=== PATIENT | female | born 2000 | race Caucasian/White ===

== ENCOUNTER 2022-11-04 00:31 | Inpatient (IN) | payer BC, MEDICAID, SELFPAY ==
[2022-11-03 23:26] VITALS: BP 156/94; PULSE 90
[2022-11-03 23:43] VITALS: BP 132/61; PULSE 90
[2022-11-03 23:58] VITALS: BP 144/65; PULSE 100
[2022-11-04] VITALS (81 sets, daily range): BP systolic 88–165; BP diastolic 50–103; PULSE 60–141; RESP 15–18; TEMP 36–37.8; O2SAT 99; BMI 47.3
[2022-11-04] MEDS: miSOPROStol 100 mcg tablet 25 MCG SUBLINGUAL (00:24)
[2022-11-04 00:34] LABS: Basophils % 0.1 %; Eosinophils # 0.1 10^3/uL (0.0-0.8); Eosinophils % 0.6 %; Hemoglobin 11.6 g/dL (11.5-15.3); Lymphocytes # 1.7 10^3/uL (0.8-4.8); Lymphocytes % 17.7 %; Mean Corpuscular HGB Conc 33.1 g/dL (30.0-36.0); Mean Corpuscular Hemoglobin 30.9 pg (28.0-34.0); Mean Corpuscular Volume 93.3 fl (81-99); Mean Platelet Volume 11.7 fL (7.4-10.4); Monocytes # 0.8 10^3/uL (0.2-0.9); Monocytes % 8.2 %; Neutrophils # 7.09 10^3/uL (1.8-7.7); Neutrophils % 72.8 %; Nucleated Red Blood Cells % 0 %; Platelet Count 227 10^3/cmm (130-400); Red Blood Count 3.75 10^6/uL (4.1-5.3); Red Cell Distribution Width 13.3 % (12.1-15.1); White Blood Count 9.7 10^3/uL (4.0-10.0)
[2022-11-04] MEDS: dextrose 5%-lactated ringers 1,000 ML 125 ML IV ×3 (04:28→13:05)
[2022-11-04] MEDS: oxytocin 30 UNIT/500 ML BAG IV (06:15)
--- NOTE | 2022-11-04 08:49 | ANES.PREANE2 ---
Pre-Anesthetic Assessment Height/Weight: Height 1.63 m Weight 125.191 kg Temp Pulse Resp BP Pulse Ox O2 Del Method 97.9 F 105 H 15 111/52 99 11/04/22 00:00 11/04/22 08:40 11/04/22 00:00 11/04/22 08:40 11/04/22 08:28 11/04/22 02:47 epidural Familial anesthetic complications: None Was Beta Abhishek taken within 24 hours: N/A Was Clonidine taken within 24 hours: N/A Social Tobacco and No alcohol Exam alert, oriented x 3, clear to auscultation bilaterally and regular rate & rhythm Airway Mallampati: Class III Dentition: full Metabolic Morbid Obesity Anesthetic Plan ASA status: 3 Anesthesia: Regional (specify below) Risk of > 500 ml blood loss (7ml/kg in children): Yes, adequate IV access and fluids planned Medications/Allergies Current Medications Generic Name Dose Route Start Last Admin Trade Name Freq PRN Reason Stop Dose Admin Dextrose/Lactated Ringer's 1,000 mls @ 125 mls/hr 11/03/22 23:59 11/04/22 07:50 Dextrose 5%-Lactated Ringers IV Infused .Q8H PRN Infusion per label comments Dextrose/Lactated Ringer's 1,000 mls @ 125 mls/hr 11/03/22 23:45 11/04/22 07:49 Dextrose 5%-Lactated Ringers IV 125 mls/hr .Q8H CARLY Administration Oxytocin 30 unit in 500 mls @ 1 mls/hr 11/04/22 05:45 11/04/22 08:09 Pitocin IV 4 milliunit/min .Q24H CARLY 4 mls/hr Titration Protocol 1 MILLIUNIT/MIN Ropivacaine 200 mg in 100 mls @ 13 mls/hr 11/04/22 08:15 11/04/22 08:32 Naropin Premix EPIDURAL 13 mls/hr .Q7H42M CARLY Administration PFSH Anesthesia Female Reproductive History : 1 Data Anesthesia 11/04/22 00:00 Short CBC 11/04/22 Range/Units 00:00 WBC 9.7 (4.0-10.0) 10^3/uL Hgb 11.6 (11.5-15.3) g/dL Hct 35.0 L (37.0-47.0) % MCV 93.3 (81-99) fl Plt Count 227 (130-400) 10^3/cmm Neut % (Auto) 72.8 % Neut # (Auto) 7.09 (1.8-7.7) 10^3/uL Cardiac Studies: No Data to Display
--- NOTE | 2022-11-04 08:50 | ANES.PROC ---
Anesthesia Procedures Procedure/Date: 11/04/22 Epidural: Time Out Performed: Yes Consents Signed: Procedure Consent Consent: requested by attending/covering physician, from patient, from other, risks and benefits reviewed and patient agrees to proceed Lumbar Level: L3-L4 Epidural position: sitting Epidural procedure: sterile prep of area, 1% lidocaine to numb the area, 18 g needle, negative for paresthesia passed, neg for paresthesia, test dose given, 1.5% xylocaine 1:200k epi (5 cc), 0.2% Ropivacaine bolus ml (5), placed PCEA, no systemic response, sterile dressing applied, L.U.D. no apparent complications and 0.2% Ropiavacaine @ mls/hr (14) Additional Comments: KOBY at 6.5 cm
[2022-11-04] MEDS: ondansetron 2 mg/ML SDV 2 mL 4 MG IVP ×2 (09:26→17:47)
--- NOTE | 2022-11-04 16:42 | PC.NURSE ---
Patient complaining of pain on her right side. Patient repositioned and epidural bolus administered.
--- NOTE | 2022-11-04 18:49 | PC.NURSE ---
Patient continues to complain of pain of a 7 on a scale of 0-10 after position change and pushing her epidural bolus. Anesthesia called and stated they would come bolus her.
--- NOTE | 2022-11-04 19:12 | P.PN_ITS ---
Subjective Subjective: Patient received epidural 11 hours prior, patient has been resting comfortably. RN called [employer] reporting patients onset of discomfort within the last hour despite 3 demand doses. [employer] came and assessed Epidural function bilateral block noted T10 level. Patient describes sharp pain in vaginal area. 100 mcg Fentanyl and 5 ml of 3% Chloroprocaine given via epidural. Will continue to monitor. Vitals/I&O/Wt Last Vital Signs Temp 98.3 F 11/04/22 14:48 Pulse 93 11/04/22 18:58 Resp 18 11/04/22 14:48 BP 143/61 11/04/22 18:58 Pulse Ox 99 11/04/22 08:28 O2 Del Method 11/04/22 02:47 11/04/22 11/04/22 11/04/22 06:59 14:59 22:59 Intake Total 1719.550 / 1719.550 138.25 / 1857.800 Output Total 1000 / 1000 400 / 1400 Balance 719.550 / 719.550 -261.75 / 457.800 Weight last 48 hrs Weight 125.191 kg Physical Exam Urinary Catheter Management: Su: Cath Placed During This Visit: yes Reason for Continuing Indwelling Catheter: Required Immobilization for Trauma or Surgery or Anesthesia Urinary Catheter Date of Insertion: 11/04/22 Urinary Catheter Time of Insertion: 09:02 Data 11/04/22 00:00 Attestations Medical Necessity Statement*: none Coding Level of Care Code Acute Code for Chg Fwd
[2022-11-04] MEDS: lactated ringers 1,000 ML 999 ML IV ×2 (20:00→21:35)
[2022-11-04] MEDS: famotidine 20 mg/2 mL INJ IVP (22:17)
[2022-11-04] MEDS: citric acid-sodium citrate 30 mL UDC PO (22:17)
[2022-11-04] MEDS: ceFAZolin 2,000 MG in sodium chloride 0.9% (plus) 50 ML 100 MG IV (22:17)
[2022-11-04] MEDS: metoclopramide 5 mg/mL SDV 2 mL 10 MG IVP (22:17)
--- NOTE | 2022-11-04 22:20 | P.HP_ITS ---
Providers/Chief Complaint Admitting Physician: Glenn Kee MD Chief Complaint: possible ROM History of Present Illness Nohemy Eduardo is a 22 year old 41-week 2 para 0-0-1-0 female who presented to the hospital with spontaneous rupture of membranes. The rupture of membranes occurred within a couple hours of arriving at the hospital. Her had been relatively unremarkable otherwise. Her labs had been unremarkable. Her blood type was a positive. Her antibody screen was negative. Her infectious disease profile was within normal limits. She had a borderline glucose screen done but did not get a 3-hour test done. She is rubella immune. She received her Tdap. She was GBS negative. Review of Systems General: Reports: 10 or more systems reviewed and unremarkable except in HPI and below Const: Reports: fever(s) and fatigue Eyes: Denies: change in vision Card: Denies: chest pain Musc: Reports: back pain Alfonso/Lymph: Denies: easy bruising Medications/Allergies Home Medications Medication Instructions Recorded Confirmed Last Taken Type [id number]-cyb-Gh-FA 1 mg tab PO 11/04/22 11/03/22 08:00 History tablet docusate sodium 100 mg capsule 100 mg PO BID #20 caps 11/06/22 Unknown Rx hydrocodone 5 mg-acetaminophen 325 1 tab PO Q4H PRN Moderate To 11/06/22 Unknown Rx mg tablet Severe Pain #28 tabs ibuprofen 800 mg tablet 800 mg PO TID #45 tabs 11/06/22 Unknown Rx Allergies Allergy/AdvReac Type Severity Reaction Status Date / Time No Known Allergies Allergy Verified 11/04/22 14:52 PFSH Acute Female Reproductive History: : 1 Vitals/I&O/Wt Last Vital Signs Temp 100.0 F H 11/04/22 19:40 Pulse 94 11/04/22 22:12 Resp 18 11/04/22 14:48 BP 143/81 11/04/22 22:12 Pulse Ox 99 11/04/22 08:28 O2 Del Method 11/04/22 02:47 11/04/22 11/04/22 11/04/22 06:59 14:59 22:59 Intake Total 1719.550 / 4414.347 4281.300 / 2850.850 Output Total 1000 / 1000 400 / 1400 Balance 719.550 / 719.550 731.300 / 1450.850 Weight last 48 hrs Weight 276 lb Physical Exam Const: COMMON NORMALS: patient oriented x3 and alert HENMT: COMMON NORMALS: moist oral mucous membranes HEAD & SCALP: normal to inspection Chest: COMMONS NORMALS: normal inspection of the chest Resp: COMMON NORMALS: clear to auscultation bilaterally AUSCULTATION: clear to auscultation bilaterally Cardio: COMMON NORMALS: regular rate and regular rhythm RATE: regular rate RHYTHM: regular rhythm GI: INSPECTION: Yes normal to inspection and Yes other (Gravid) Extremity: COMMON NORMALS: normal to inspection GENERAL: Yes edema (Trace) Neuro: COMMON NORMALS: patient oriented x3, moves all extremities and no sensory deficits noted SENSORIUM/ORIENTATION: Yes alert Psych: COMMON NORMALS: mental status grossly normal Skin: COMMON NORMALS: no rashes or lesions noted GENERAL SKIN EXAM: no rashes or lesions noted Urinary Catheter Management: Su: Cath Placed During This Visit: yes Reason for Continuing Indwelling Catheter: Required Immobilization for Trauma or Surgery or Anesthesia Urinary Catheter Date of Insertion: 11/04/22 Urinary Catheter Time of Insertion: 09:02 Data 11/04/22 00:00 A&P Assessment and plan (1) 41 weeks gestation of : (2) Spontaneous rupture of membranes: (3) Failure to progress in labor: Patient has 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 It has now been 24 hours since her membranes ruptured, her temperature is now 100.0, I am elected to proceed with a section. I discussed the risk with the patient and her . We discussed the risks of bleeding and infection. They have no further questions and wished to proceed. Because of mother's pulse is less than 100, her temperature is less than 100.4, and there have been no other signs of chorioamnionitis at this point, we will not give her more than her routine presurgical antibiotics. Attestations Medical Necessity Statement*: I anticipate routine and post C- section care Coding Level of Care Code Acute Code for Chg Fwd Exam Comprehensive Diagnoses 41 weeks gestation of O48.0; Z3A.41 Spontaneous rupture of membranes Failure to progress in labor O62.2
--- NOTE | 2022-11-04 23:31 | PM.OP ---
Operative Report Date of procedure: November 04, 2022 Pre-op diagnosis: 1. 22-year-old 2 para 0-0-1-0 at 41 weeks estimated gestational age 2. Failure to progress Post-op diagnosis: Status post lower transverse section Procedure done: Lower transverse section Specimens removed/disposition: 1. Male infant with a weight of 9 pounds 6 ounces and Apgars of 8 and 8 2. Placenta with a three-vessel cord delivered intact Surgeon: Glenn Kee Estimated blood loss (mL): 1,000 Complications: None Procedure: The patient was brought back to the operating room where she was prepped and draped in usual sterile fashion. Anesthesia was found to be adequate. A lower transverse skin incision was then made with a #10 blade. I then dissected down to the underlying subcutaneous tissue until arriving at the prerectal fascia. The fascia was then nicked with the scalpel bilaterally. The fascial incisions were then carried laterally with Lofton scissors. Attention was then turned to the superior aspect of the incision which was grasped with kochers and tented up away from the underlying rectus abdominis muscles. The muscles were then dissected away from the fascia manually, and later with Lofton scissors. Attention was then turned to the inferior aspect of the incision, and the fascia was dissected away from the underlying muscle in similar fashion. The rectus abdominis muscles were then spread manually. The peritoneum was entered manually. Excellent visualization of the uterus was noted. A lower transverse uterine incision was then made with a #10 blade. Upon arriving at the intrauterine cavity, the uterine incision was then extended manually. The infant was noted to be in vertex position. The baby was delivered without difficulty. After delivery of the head, the mouth and nose were suctioned at the site of the incision. Moderate meconium was noted.. There was a nuchal cord x1. The remainder of the body was then delivered and placed on the abdomen. The cord was cut and clamped. The baby was then handed to the waiting nurse. The placenta was removed intact. The uterus was externalized. The intrauterine cavity was cleansed of any remaining debris. The uterine incision was reapproximated in 2 layers. The first layer was performed with 0 Vicryl in a running locked stitch. The second layer was an imbricating stitch also using 0 Vicryl. The uterus was replaced into the abdomen. The peritoneum was then irrigated with warm saline. I reexamined the uterine incision and found it to be hemostatic. The rectus abdominis muscles were then reapproximated using 0 Vicryl in a running stitch. The fascia was then reapproximated using 0 Vicryl in running stitch. The subcutaneous tissue was then reapproximated using 0 Vicryl in a running stitch. The skin was then reapproximated using 4-0 Vicryl in a running subcuticular stitch. A sterile dressing was placed. All counts were correct x2. Both the mother and baby were in stable condition.
[2022-11-05] VITALS (57 sets, daily range): BP systolic 103–142; BP diastolic 56–85; PULSE 78–106; RESP 16–18; TEMP 36.1–36.9; O2SAT 93–98
[2022-11-05] MEDS: dextrose 5%-lactated ringers 1,000 ML 125 ML IV ×2 (04:01→12:38)
[2022-11-05] MEDS: oxytocin 30 UNIT/500 ML BAG 600 UNIT IV (05:28)
[2022-11-05] MEDS: ketorolac 30 mg/mL INJ IVP ×2 (05:51→11:27)
[2022-11-05] MEDS: morphine 4 mg/mL SDV 1 mL IVP (06:29)
[2022-11-05] MEDS: docusate sodium 100 mg Capsule PO ×2 (08:39→17:52)
[2022-11-05] MEDS: ferrous sulfate EC 325 mg Tablet PO ×2 (08:39→17:52)
[2022-11-05] MEDS: prenatal vitamin Capsule 1 CAP PO (08:39)
--- NOTE | 2022-11-05 09:30 | ANE.PACU2 ---
Inpatient post-anesthesia follow up: Airway intact: Yes Vital signs: Temperature 97.9 F Pulse Rate 93 Respiratory Rate 16 Blood Pressure 118/63 Pulse Oximetry 95 Oxygen Delivery Me thod Room Air Oxygen Flow Rate Fraction of Inspir ed Oxygen Hydration adequate: Yes Nausea and vomiting: No Pain level: 1 Mental status: Baseline
[2022-11-05] MEDS: lactated ringers 1,000 ML 500 ML IV (10:20)
[2022-11-05 12:02] LABS: Hematocrit 28.3 % (37.0-47.0); Hemoglobin 9.2 g/dL (11.5-15.3); Mean Corpuscular HGB Conc 32.5 g/dL (30.0-36.0); Mean Corpuscular Hemoglobin 31.6 pg (28.0-34.0); Mean Corpuscular Volume 97.3 fl (81-99); Mean Platelet Volume 11.4 fL (7.4-10.4); Platelet Count 172 10^3/cmm (130-400); Red Blood Count 2.91 10^6/uL (4.1-5.3); Red Cell Distribution Width 13.7 % (12.1-15.1); White Blood Count 12.1 10^3/uL (4.0-10.0)
[2022-11-05] MEDS: HYDROcodone-acetaminophen 5-325 mg Tablet PO ×2 (12:23→23:12)
[2022-11-05] MEDS: simethicone 80 mg Chew PO (21:15)
[2022-11-05] MEDS: ibuprofen 800 mg tablet PO (21:15)
[2022-11-06] MEDS: HYDROcodone-acetaminophen 5-325 mg Tablet PO ×4 (03:16→16:55)
[2022-11-06 05:09] VITALS: BP 123/82; PULSE 83; RESP 16; TEMP 36.6
--- NOTE | 2022-11-06 07:29 | PM.OBGYPN ---
DIRECTOR OF ENROLLMENT Subjective Subjective: Interval history: This note is for my evaluation and physical on November 05. Overall the patient has done appropriately. Her pain is being controlled with ibuprofen and hydrocodone. The patient is hesitant to take hydrocodone. She is also having some difficulty with breast-feeding, and the nurses are helping her consistently. Her bleeding has been minimal. She has not passed gas. Her urine output has been marginal, but has improved dramatically after having a bolus. Labor: Station: -2 Amniotic Membrane Status: Ruptured Monitor Mode: External Contraction Pattern: Regular Status: Category I Vitals/I&O/Wt Last Vital Signs Temp 97.9 F 11/06/22 05:09 Pulse 83 11/06/22 05:09 Resp 16 11/06/22 05:09 BP 123/82 11/06/22 05:09 Pulse Ox 98 11/05/22 21:18 O2 Del Method 11/05/22 21:17 11/05/22 11/06/22 11/06/22 22:59 06:59 14:59 Intake Total 795.833 / 1795.833 Balance 795.833 / 1645.833 Physical Exam Narrative: She is in no acute distress Lungs are clear auscultation bilaterally Her heart has a regular rate and rhythm Her fundus is below the umbilicus and firm Her dressing is clean, dry and intact Her extremities have trace edema Urinary Catheter Management: Su: Cath Placed During This Visit: yes Reason for Continuing Indwelling Catheter: Required Immobilization for Trauma or Surgery or Anesthesia Urinary Catheter Date of Insertion: 11/04/22 Urinary Catheter Time of Insertion: 09:02 Data 11/05/22 11:30 A&P Assessment and plan (1) Status post : We will continue to encourage the patient to ambulate. The nurses will continue to work with her home breast-feeding. She has been sending some back signals as to whether she wants to continue breast-feeding, but as long as she expresses interest we will continue to assist her. Otherwise, we will monitor her her postoperative progress. I anticipate she will be discharged home within the next 1 to 2 days. Attestations Medical Necessity Statement*: Routine and post care Coding Level of Care Code Acute Code for Chg Fwd Diagnoses Status post Z98.891
--- NOTE | 2022-11-06 07:35 | PM.OBGYPN ---
NUMERICAL CONTROL TOOL PROGRAMMER Subjective Subjective: Interval history: The patient's bleeding continues to be minimal. She continues to have some struggles with the baby latching during her breast-feeding sessions. She has been ambulating some, but we are encouraging her to ambulate more. She has not had any flatus. She is hungry this morning. Labor: Station: -2 Amniotic Membrane Status: Ruptured Monitor Mode: External Contraction Pattern: Regular Status: Category I Vitals/I&O/Wt Last Vital Signs Temp 97.9 F 11/06/22 05:09 Pulse 83 11/06/22 05:09 Resp 16 11/06/22 05:09 BP 123/82 11/06/22 05:09 Pulse Ox 98 11/05/22 21:18 O2 Del Method 11/05/22 21:17 11/05/22 11/06/22 11/06/22 22:59 06:59 14:59 Intake Total 795.833 / 1795.833 Balance 795.833 / 1645.833 Physical Exam Narrative: She is in no acute distress Lungs are clear auscultation bilaterally Her heart has a regular rate and rhythm Her fundus is below the umbilicus and firm Her vision is clean, dry and intact. There is a small amount of dried blood on the left side of her incision. Her extremities have trace edema Urinary Catheter Management: Su: Cath Placed During This Visit: yes Reason for Continuing Indwelling Catheter: Required Immobilization for Trauma or Surgery or Anesthesia Urinary Catheter Date of Insertion: 11/04/22 Urinary Catheter Time of Insertion: 09:02 Data 11/05/22 11:30 A&P Assessment and plan (1) Status post : We will continue to monitor her progress today. We will continue to encourage her to ambulate. I anticipate that she will pass some gas today. When she does, we will advance her diet. Attestations Medical Necessity Statement*: The patient could progress quickly if she passes flatus this morning, otherwise I anticipate she will be discharged home in the next 1 to 2 days. Coding Level of Care Code Acute Code for Chg Fwd Diagnoses Status post Z98.891
[2022-11-06] MEDS: ibuprofen 800 mg tablet PO ×2 (07:36→14:14)
[2022-11-06] MEDS: ferrous sulfate EC 325 mg Tablet PO ×2 (07:36→16:57)
[2022-11-06] MEDS: prenatal vitamin Capsule 1 CAP PO (07:36)
[2022-11-06 10:00] VITALS: TEMP 36.8
[2022-11-06 11:06] VITALS: BP 115/60; PULSE 97
[2022-11-06 14:56] VITALS: BP 111/79; PULSE 93; RESP 15; TEMP 36.3
[2022-11-06] MEDS: simethicone 80 mg Chew PO (16:57)
[2022-11-06] MEDS: docusate sodium 100 mg Capsule PO (16:57)
--- NOTE | 2022-11-06 17:31 | PM.OBGYDC ---
Discharge Providers ACCOUNT SUPPORT SPECIALIST Date of Admission: 11/04/22 00:31 Date of Discharge: 11/06/22 Attending Provider at Admission: Glenn Kee MD Attending Provider at Discharge: Glenn Kee MD Diagnoses at Discharge Discharge Diagnosis (1) Status post : Status: Acute Reason for Visit Reason for Visit: possible ROM Hospital Course Hospital Course The patient presented to the hospital with spontaneous rupture of membranes. She was placed on Cytotec. Her labor was later augmented with Pitocin. Unfortunately, the baby did not tolerate higher Pitocin doses, and her cervix made minimal jacket changer 10 hours. We are 24 hours post rupture of membranes and there is little indication that we will be delivering shortly. The baby was showing some distress intermittently. We elected to proceed with a section. Dissection was unremarkable. The course was remarkable for the patient having some difficulty with pain. When she was on her hydrocodone consistently, her pain was well controlled and she was active. She passed gas about 36 hours after the procedure. She tolerated her regular diet well. Time she ambulated well, and other times she was not as interested in ambulating. Breast-feeding was somewhat difficult, as a child did not latch well. Information Peripartum Data: Delivery Method: Physical Exam Narrative: The patient is alert. She appears comfortable. Her heart has a regular rate and rhythm with no murmurs appreciated. Lungs are clear to auscultation bilaterally. Her fundus is firm and below the umbilicus. Her incision is clean dry and intact. Her bowel sounds are positive. Urinary Catheter Management: Su: Cath Placed During This Visit: yes Reason for Continuing Indwelling Catheter: Required Immobilization for Trauma or Surgery or Anesthesia Urinary Catheter Date of Insertion: 11/04/22 Urinary Catheter Time of Insertion: 09:02 Discharge Data Studies Completed and Pending Laboratory Results WBC 12.1 10^3/uL (4.0-10.0) H 11/05/22 11:30 RBC 2.91 10^6/uL (4.1-5.3) L 11/05/22 11:30 Hgb 9.2 g/dL (11.5-15.3) L 11/05/22 11:30 Hct 28.3 % (37.0-47.0) L 11/05/22 11:30 MCV 97.3 fl (81-99) 11/05/22 11:30 MCH 31.6 pg (28.0-34.0) 11/05/22 11:30 MCHC 32.5 g/dL (30.0-36.0) 11/05/22 11:30 RDW 13.7 % (12.1-15.1) 11/05/22 11:30 Plt Count 172 10^3/cmm (130-400) 11/05/22 11:30 MPV 11.4 fL (7.4-10.4) H 11/05/22 11:30 Neut % (Auto) 72.8 % 11/04/22 00:00 Lymph % (Auto) 17.7 % 11/04/22 00:00 [place] % (Auto) 8.2 % 11/04/22 00:00 Eos % (Auto) 0.6 % 11/04/22 00:00 Baso % (Auto) 0.1 % 11/04/22 00:00 Neut # (Auto) 7.09 10^3/uL (1.8-7.7) 11/04/22 00:00 Lymph # (Auto) 1.7 10^3/uL (0.8-4.8) 11/04/22 00:00 [place] # (Auto) 0.8 10^3/uL (0.2-0.9) 11/04/22 00:00 Eos # (Auto) 0.1 10^3/uL (0.0-0.8) 11/04/22 00:00 Baso # (Auto) 0.0 10^3/uL (0.0-0.1) 11/04/22 00:00 Nucleated RBC % (auto) 0 % 11/04/22 00:00 Nucleated RBCs # 0.0 /100WBC 11/04/22 00:00 Vitals Last Vital Signs Temp 97.3 F L 11/06/22 14:56 Pulse 93 11/06/22 14:56 Resp 15 11/06/22 14:56 BP 111/79 11/06/22 14:56 Pulse Ox 98 11/05/22 21:18 O2 Del Method 11/05/22 21:17 Discharge Plan Discharge Patient Disposition: Home Prescriptions: New ibuprofen 800 mg Tablet 800 mg PO TID Qty: 45 0RF hydrocodone-acetaminophen 5-325 mg Tablet 1 tab PO Q4H PRN (Reason: Moderate To Severe Pain) Qty: 28 0RF docusate sodium 100 mg Capsule 100 mg PO BID Qty: 20 0RF Continued jsjaiedy-heb-Ny-FA 1 mg Tablet PO Discharge Orders: Discharge Order (Routine); Ordered 11/06/22 Ordered By: Glenn Kee Referrals: Glenn Kee MD [Physician] - 11/09/22 Discharge Diet: Usual diet Discharge Activity: Limit activity as instructed Patient Instructions: Hydrocodone/Acetaminophen (By mouth) (Vicodin, [place], Lortab), Depression (DC), Bleeding (DC), Preeclampsia and Eclampsia After Delivery (GEN), (DC), OB Care at Home, Opioid Safety, Abnormal Bleeding Activity Restrictions/Additional Instructions: Be sure to contact Dr. Kee over the OB department if there are any concerns or questions. Discharge Attestations ACCOUNT SUPPORT SPECIALIST Time Spent in Discharge Care*: greater than 30 min Coding Level of Care Code Acute Code for Chg Fwd Diagnoses Status post Z98.891
[2022-11-06 18:28] VITALS: BP 132/83; PULSE 97; RESP 15; TEMP 36.8
== END 2022-11-06 18:15 | disposition home or self-care (01) | DRG 788 ==
LOC: OPOB 00:35 → OBGYN 00:35
PROVIDERS: Admitting Provider Family Medicine; Visit Provider Family Medicine
PROC: 10D00Z1 Extraction of Products of Conception, Low, Open Approach (ICD-10-PCS; CPT 59514; principal; 2022-11-04 22:30)
DX: O48.0 Post-term pregnancy (principal); O62.8 Other abnormalities of forces of labor; O77.9 Labor and delivery complicated by fetal stress, unspecified; O69.81X0 Labor and delivery complicated by cord around neck, without compression, not applicable or unspecified; O99.334 Smoking (tobacco) complicating childbirth; F17.290 Nicotine dependence, other tobacco product, uncomplicated; Z3A.41 41 weeks gestation of pregnancy; Z37.0 Single live birth
CPT/HCPCS: 12345; 36415; 51702; 59025; 59409; 83986; 85025; 85027; 96374; 96376; 98960; 99211; J0690; J1885; J2250; J2270; J2274; J2405; J2590; J2765; J2795; J3010; J3490; J7120; J7121

== ENCOUNTER 2022-12-16 22:15 | Emergency (ER) | payer BC, MEDICAID, SELFPAY ==
[2022-12-16 22:20] VITALS: BP 134/79; PULSE 76; RESP 20; TEMP 36.9; O2SAT 97; BMI 38.9
[2022-12-17] LABS: Basophils % 0.3 %; Eosinophils # 0.2 10^3/uL (0.0-0.8); Eosinophils % 2.1 %; Hematocrit 39.6 % (37.0-47.0); Hemoglobin 12.8 g/dL (11.5-15.3); Lymphocytes # 2.7 10^3/uL (0.8-4.8); Lymphocytes % 25.2 %; Mean Corpuscular HGB Conc 32.3 g/dL (30.0-36.0); Mean Corpuscular Hemoglobin 29.7 pg (28.0-34.0); Mean Corpuscular Volume 91.9 fl (81-99); Mean Platelet Volume 10.2 fL (7.4-10.4); Monocytes # 0.9 10^3/uL (0.2-0.9); Neutrophils # 6.92 10^3/uL (1.8-7.7); Nucleated Red Blood Cells % 0 %; Platelet Count 391 10^3/cmm (130-400); Red Blood Count 4.31 10^6/uL (4.1-5.3); Red Cell Distribution Width 11.9 % (12.1-15.1); White Blood Count 10.8 10^3/uL (4.0-10.0)
--- NOTE | 2022-12-17 02:28 | W.ED.WOUNDLC ---
HPI - Wound/Laceration General: Chief Complaint: Wound/Laceration Stated Complaint: c-sec incision opened Time Seen by Provider: 12/17/22 02:14 History of Present Illness: Patient is a 22-year-old female comes to the ED with incision site bleeding. Patient had approximately 1 month ago. She was having some bleeding from incision site approximately 2 weeks ago and the doctor put her on antibiotic and she completed a course of antibiotic. Today she started developing some bleeding from incision site again. Patient has an appointment with Dr. Kee this coming December 18. Denies any fevers, purulent discharge, worsening abdominal pain or pain around site. Associated symptoms: Denies chills, fever(s), nausea or vomiting Review of Systems Const: Denies: fever(s), chills or fatigue Eyes: Denies: change in vision or eye discomfort ENMT: Denies: throat pain, odynophagia, nasal discharge or nasal congestion Card: Denies: chest pain, palpitations, edema, swelling of feet/ankles, dyspnea on exertion or orthopnea Resp: Denies: dyspnea, productive cough or non-productive cough GI: Denies: abdominal pain, nausea, vomiting, diarrhea, constipation or hematochezia : Denies: flank pain, dysuria or hematuria Musc: Denies: neck pain, back pain or extremity swelling Skin/Breast: Reports: surgical incision (Bleeding from section incision site); Denies: rash or new lesions Neuro: Denies: headache(s), numbness in extremities or weakness in extremities [facility] ED PFSH: Medical History (Updated 12/17/22 @ 02:41 by REED Lennon) No pertinent family history Surgical History (Updated 12/17/22 @ 02:41 by REED Lennon) History of Physical Exam Const: COMMON NORMALS: no acute distress, patient oriented x3, healthy appearing and alert HENMT: COMMON NORMALS: normocephalic HEAD & SCALP: normocephalic MOUTH: Normal oral and palatal mucosa present THROAT: posterior oropharynx normal and uvula midline Neck/C-Spine: COMMON NORMALS: supple GENERAL: Yes normal visual inspection Resp: COMMON NORMALS: normal respiratory effort, No retractions, No use of accessory muscles and clear to auscultation bilaterally AUSCULTATION: clear to auscultation bilaterally Cardio: COMMON NORMALS: regular rate, regular rhythm, S1 normal heart sound present, S2 normal heart sound present, No gallops present (Cardio), No clicks present (Cardio), No murmurs present (Cardio) and Peripheral pulses 2+ throughout RATE: regular rate RHYTHM: regular rhythm HEART SOUNDS: S1 normal heart sound present and S2 normal heart sound present PERIPHERAL PULSES: Peripheral pulses 2+ throughout GI: COMMON NORMALS: Normal to inspection, nondistended, normoactive bowel sounds present, Soft to palpation, non-tender and no masses INSPECTION: Yes incision (Small wound dehiscence with small amount of blood-no cellulitis) PALPATION: Yes Soft to palpation OTHER: No active heavy bleeding from incision site and no pulsatile bleeding : COMMON NORMALS: Yes no CVA tenderness BLADDER/KIDNEY EXAM: Yes no CVA tenderness Back/Pelvis: COMMON NORMALS: no CVA tenderness Extremity: COMMON NORMALS: normal to inspection Neuro: COMMON NORMALS: patient oriented x3 SENSORIUM/ORIENTATION: Yes alert GAIT: Yes Normal gait present Skin: GENERAL SKIN EXAM: dry skin Course Vital Signs: Vital signs: Vital Signs Temperature 98.5 F 12/16/22 22:20 Pulse Rate 76 12/16/22 22:20 Respiratory Rate 20 H 12/16/22 22:20 Blood Pressure 134/79 12/16/22 22:20 Pulse Oximetry 97 12/16/22 22:20 MDM - Wound/Laceration Medical Decision Making Patient is a 22-year-old female comes to the ED with incision site bleeding. Denies any fevers, nausea/vomiting, abdominal pain, dysuria or hematuria. Vitals are stable. Exam shows a healthy-appearing 22-year-old female in no acute distress or pain. Abdomen is nontender. No signs of cellulitis around wound. Small area of wound dehiscence noted with very minimal amount of blood present. CBC was unremarkable. Triple antibiotic and bandage applied on the wound. she has a follow-up appoint with Dr. Kee in 2 days on December 18. I told her to continue keeping area clean and dry daily and then to apply triple antibiotic ointment on it along with bandage. Return to ED precautions given. Patient understood and agreed with plan. Lab Data I reviewed the patient's lab results. 12/16/22 23:13 Laboratory Results WBC 10.8 10^3/uL (4.0-10.0) H 12/16/22 23:13 RBC 4.31 10^6/uL (4.1-5.3) 12/16/22 23:13 Hgb 12.8 g/dL (11.5-15.3) 12/16/22 23:13 Hct 39.6 % (37.0-47.0) 12/16/22: MCV 91.9 fl (81-99) 12/16/22 23: MCH 29.7 pg (28.0-34.0) 12/16/22: MCHC 32.3 g/dL (30.0-36.0) 12/16/22: RDW 11.9 % (12.1-15.1) L 12/16/22 23: Plt Count 391 10^3/cmm (130-400) 12/16/22 23:13 MPV 10.2 fL (7.4-10.4) 12/16/22 23:13 Neut % (Auto) 64.0 % 12/16/22 23:13 Lymph % (Auto) 25.2 % 12/16/22 23:13 Emanuel % (Auto) 8.0 % 12/16/22 23:13 Eos % (Auto) 2.1 % 12/16/22:13 Baso % (Auto) 0.3 % 12/16/22 23: Neut # (Auto) 6.92 10^3/uL (1.8-7.7) 12/16/22 23: Lymph # (Auto) 2.7 10^3/uL (0.8-4.8) 12/16/22 23:13 Emanuel # (Auto) 0.9 10^3/uL (0.2-0.9) 12/16/22: Eos # (Auto) 0.2 10^3/uL (0.0-0.8) 12/16/22 23: Baso # (Auto) 0.0 10^3/uL (0.0-0.1) 12/16/22 23: Nucleated RBC % (auto) 0 % 12/16/22 23:13 Nucleated RBCs # 0.0 /100WBC 12/16/22 23:13 Discharge Plan Discharge Patient Disposition: Home Clinical Impression: Dehiscence of section wound, Condition: Stable Prescriptions: No Action [id number] 1 mg Tablet PO ibuprofen 800 mg Tablet 800 mg PO TID Qty: 45 0RF hydrocodone-acetaminophen 5-325 mg Tablet 1 tab PO Q4H PRN (Reason: Moderate To Severe Pain) Qty: 28 0RF docusate sodium 100 mg Capsule 100 mg PO BID Qty: 20 0RF Discharge Orders: Discharge ED (Routine); Ordered 12/17/22 Ordered By: Aneudy Koenig Discharge Diet: Regular Discharge Activity: Increase activity as tolerated Activity Restrictions/Additional Instructions: Follow-up with Dr. Kee at your next scheduled appointment this coming Sunday. Keep surgical site clean and dry daily. Apply thin layer triple antibiotic ointment and bandage. Return to the ER or your medical provider if condition worsens. Please read and understand discharge instructions. Thank you for choosing [facility] for your healthcare needs today. Please realize this is an emergency room and that we are providing you with a medical screening exam and this may not be complete and all inclusive of all the testing and or work up that you may need to determine your ailment or severity of your illness. It is very important that you follow up as instructed or that you return to the Emergency Department should you have concerns or if your condition changes or worsens in any way. Coding Level of Care Code ED Field Marketing Specialist for Elizabet Lopez
[2022-12-17] MEDS: neomycin-poly-bacitracin oint 28 gm 1 APPLIC TOPICAL (02:39)
== END 2022-12-17 02:40 | disposition home or self-care (01) ==
PROVIDERS: Emergency Provider Physician Assistant
DX: O90.0 Disruption of cesarean delivery wound (principal)
CPT/HCPCS: 36415; 85025; 99283

== ENCOUNTER 2024-08-09 23:15 | Emergency (ER) | payer BC, MEDICAID, SELFPAY ==
[2024-08-09 23:18] VITALS: BP 125/72; PULSE 88; RESP 16; TEMP 37.1; O2SAT 99; BMI 41.1
--- NOTE | 2024-08-09 23:37 | XRR_ITS ---
PROCEDURE INFORMATION: Exam: XR Right Ankle Exam date and time: 08/09/2024 11:45 PM Age: 23 years old Clinical indication: Injury or trauma; Other: Twisting; Sprain or strain; Right; Patient HX: Patient twisted ankle while walking dog earlier today. C/O diffuse pain. TECHNIQUE: Imaging protocol: Radiologic exam of the right ankle. Views: 3 or more views. COMPARISON: No relevant prior studies available. FINDINGS: Bones/joints: No acute fracture or dislocation. Soft tissues: Mild ankle soft tissue swelling. XR/XR ankle RT min 3V* [id number] IMPRESSION: No acute bony findings.
--- NOTE | 2024-08-10 00:07 | ED_ITS ---
HPI - Extremity Problem General: Chief complaint: Extremity Injury, Lower Stated complaint: Right ankle injury Time Seen by Provider: 08/09/24 23:53 History of Present Illness: Patient is a 23-year-old female that presents to the emergency department with complaints of right ankle pain. Patient states she was walking her dog this morning when she rolled her ankle. She presents this evening with lateral ankle pain numbness and tingling. Patient has been doing [id number] remedies without significant symptoms. She is neurovascularly intact and has no open wounds Related Data Home Medications Medication Instructions Recorded Confirmed [id number]-[id number] 1 mg tab PO 11/04/22 tablet Previous Rx's Medication Instructions Recorded docusate sodium 100 mg capsule 100 mg PO BID #20 caps 11/06/22 hydrocodone 5 mg-acetaminophen 325 1 tab PO Q4H PRN Moderate To 11/06/22 mg tablet Severe Pain #28 tabs ibuprofen 800 mg tablet 800 mg PO TID #45 tabs 11/06/22 Allergies Allergy/AdvReac Type Severity Reaction Status Date / Time No Known Allergies Allergy Verified 11/04/22 14:52 Review of Systems General: Reports: 10 or more systems reviewed and unremarkable except in HPI and below PFSH ED PFSH: Medical History (Updated 08/10/24 @ 00:11 by SISSY Hebert) No pertinent family history Surgical History (Updated 12/17/22 @ 02:41 by REED Lennon) History of Physical Exam Const: COMMON NORMALS: no acute distress, patient oriented x3, healthy appearing and alert HENMT: COMMON NORMALS: normocephalic HEAD & SCALP: normocephalic MOUTH: Normal oral and palatal mucosa present THROAT: posterior oropharynx normal and uvula midline Neck/C-Spine: COMMON NORMALS: supple GENERAL: Yes normal visual inspection Resp: COMMON NORMALS: normal respiratory effort and No retractions Cardio: COMMON NORMALS: regular rate RATE: regular rate GI: COMMON NORMALS: no masses Extremity: COMMON NORMALS: normal to inspection NARRATIVE EXTREMITY EXAM: Right ankle pain: Tenderness to palpation over the lateral aspect of the right ankle. She reports numbness that extends down from the lateral malleolus into the side of the foot. Patient has full active range of motion of ankle and is able to dorsiflex plantarflex foot She is able to dorsiflex great toe Sensation intact light touch at medial, lateral, dorsal, plantar surface of the foot and first webspace DP pulses palpable and cap refills less than 3 seconds Neuro: COMMON NORMALS: patient oriented x3 SENSORIUM/ORIENTATION: Yes alert GAIT: Yes Normal gait present Skin: GENERAL SKIN EXAM: dry skin Course Vital Signs: Vital signs: Vital Signs Temperature 98.7 F 08/09/24 23:18 Pulse Rate 88 08/09/24 23:18 Respiratory Rate 16 08/09/24 23:18 Blood Pressure 125/72 08/09/24 23:18 Pulse Oximetry 99 08/09/24 23:18 Oxygen Delivery Me thod Room Air 08/09/24 23:18 MDM - Extremity (Nontraumatic) Medical Decision Making Patient was evaluated in the emergency department today for complaints of right ankle pain following a twisting motion. She underwent XR imaging of the right ankle which reveals no acute fracture. The mortise is well aligned and symmetrical. Patient and I discussed rehabbing sprained ankles. I advised her to use rest, ice, elevation but start working on range of motion as quickly as possible. She should use [id number] anti-inflammatories and Tylenol as needed for pain relief XR interpretation done by ED provider, pending radiology final review Discharge Plan Discharge Patient Disposition: Home Clinical Impression: Ankle sprain and strain Condition: Stable Prescriptions: No Action [id number] 1 mg Tablet PO ibuprofen 800 mg Tablet 800 mg PO TID Qty: 45 0RF hydrocodone-acetaminophen 5-325 mg Tablet 1 tab PO Q4H PRN (Reason: Moderate To Severe Pain) Qty: 28 0RF docusate sodium 100 mg Capsule 100 mg PO BID Qty: 20 0RF Discharge Orders: Discharge ED (Routine); Ordered 08/10/24 Ordered By: Sakshi Wood Discharge Diet: Advance as tolerated Discharge Activity: Resume usual activity Patient Instructions: Ankle Sprain (DC), Pain Management Coding Level of Care Code ED [employer] Operator for Elizabet Lopez
[2024-08-10 00:36] VITALS: BP 127/82; PULSE 89; RESP 17; O2SAT 99
--- NOTE | 2024-08-10 00:38 | PC.NURSE ---
Morphine noted to be ordered on pt chart. Provider clarification. Provider stated she entered that med in error and was for another pt. No Morphine given to this pt.
== END 2024-08-10 00:37 | disposition home or self-care (01) ==
PROVIDERS: Emergency Provider Nurse Practitioner
DX: S93.401A Sprain of unspecified ligament of right ankle, initial encounter (principal); S96.911A Strain of unspecified muscle and tendon at ankle and foot level, right foot, initial encounter; X50.1XXA Overexertion from prolonged static or awkward postures, initial encounter
CPT/HCPCS: 73610; 99283

== ENCOUNTER 2025-05-06 08:34 | Emergency (ER) | payer MEDICAID, SELFPAY ==
--- OUTSIDE RECORDS SUMMARY | 2025-05-06 08:48 | XMS_ITS | Data Portability ---
Author Organization [facility] Martir Gomes [facility] Delilah Torres, [facility] Address [address] [address] Assessment Encounter Date Assessment Date Assessment LastModified by Organization Details LastModified Time 10/21/2024 10/21/2024 Annual gynecological exam performed. Patient will come back in a year unless there are new symptoms. She will let us know when she figures out which contraception she desires. We discussed a variety of options. Not available 10/21/2024 14:25:41 Plan of Treatment Reminders Order Date Submit Date Provider Last Modified By Organization Details Last Modified Time Details Appointments None record ed. Lab pap, LB 2023 024 [facility], [address] [place] [address] 248, [address] [place], [address], 5 12:40:50 mary ann wet prep 2022 023 [facility] ([facility]), [address] [place] [address], [address], 3 17:36:16 CT + NG + TV, DNA, urine/ swab 2022 023 [employer] [facility], [address] [place] [address] 248, [address] [place], [address], 3 22:10:47 pregna ncy test, urine 2022 023 [email or web address] [facility] ([facility]), [address] [place] [address], [address], 16:42:20 Referral None record ed. Procedures None record ed. Surgeries None record ed. Imaging US, pelvis , limite d 2022 023 Not available 17:32:14 Medication Orders escita lopram 10 mg tablet 2024 025 [facility], [address], [place], [address], 5 16:09:13 Lilett a 20.4 mcg/24 hr (up to 8 years) 52 mg intrau terine device 2022 023 [email or web address] Not available 13:33:56 Patient TargetsNo targets recorded. Patient Instructions Encounter Date Encounter Id Patient Instructions Last Modified By Organization Details Last Modified Time 01/23/2023 [id number] intrauterine device (IUD) insertion: care instructions Not available 01/23/2023 21:18:20 Reason for Referral None Reported. Results Created Date Observation Date Name Description Value Unit Range Abnormal Flag Note LastModifiedBy Organization Detail LastModifiedTime 01/24/2001/23/2023 pregn scarlet test, urine HCG negati ve Not Available [facility] ([facility]) [address] [place], [address], 01/23/2023 15:33:55 02/02/20 23 02/01/2023 mary ann wet prep Whiff negati ve Not Available [facility] ([facility]) [address] [place], [address], 02/01/2023 16:37:00 02/02/20 23 02/01/2023 mary ann wet prep Epi 12-15 Not Available [facility] ([facility]) [address] [place], [address], 02/01/2023 16:37:00 02/02/20 23 02/01/2023 mary ann wet prep WBC 12-15 Not Available [facility] ([facility]) [address] [place], [address], 02/01/2023 16:37:00 02/02/20 23 02/01/2023 mary ann wet prep RBC 0 Not Available [facility] ([facility]) [address] [place], [address], 02/01/2023 16:37:00 02/02/20 23 02/01/2023 mary ann wet prep Bacteria 1+LARG E RODS Not Available [facility] ([facility]) [address] [place], [address], 02/01/2023 16:37:00 02/02/20 23 02/01/2023 mary ann wet prep Fungus NONE SEEN Not Available [facility] ([facility]) [address] [place], [address], 02/01/2023 16:37:00 02/02/20 23 02/01/2023 mary ann wet prep Clue Cells positi ve Not Available [facility] ([facility]) [address] [place], [address], 02/01/2023 16:37:00 02/02/20 23 02/01/2023 mary ann wet prep Other - Not Available [facility] ([facility]) [address] [place], [address], 02/01/2023 16:37:00 02/02/20 23 02/01/2023 urina lysis , compl ete color yellow Not Available [facility] ([facility]) [address] [place], [address], 02/01/2023 17:10:58 02/02/20 23 02/01/2023 urina lysis , compl ete clarity clear clear Not Available [facility] ([facility]) [address] [place], [address], 02/01/2023 17:10:58 02/02/20 23 02/01/2023 urina lysis , compl ete glucose negati ve negati ve Not Available [facility] ([facility]) [address] [place], [address], 02/01/2023 17:10:58 02/02/20 23 02/01/2023 urina lysis , compl ete bilirubin negati ve negati ve Not Available [facility] ([facility]) [address] [place], [address], 02/01/2023 17:10:58 02/02/20 23 02/01/2023 urina lysis , compl ete ketones negfat rosas negati ve Not Available [facility] ([facility]) [address] [place], [address], 02/01/2023 17:10:58 02/02/20 23 02/01/2023 urina lysis , compl ete specific gravity >=1.03 0 1.005- 1.025 Not Available [facility] ([facility]) [address] [place], [address], 02/01/2023 17:10:58 02/02/20 23 02/01/2023 urina lysis , compl ete pH 5.5 5.0-7. 0 Not Available [facility] ([facility]) [address] [place], [address], 02/01/2023 17:10:58 02/02/20 23 02/01/2023 urina lysis , compl ete protein negati ve Not Available [facility] ([facility]) [address] [place], [address], 02/01/2023 17:10:58 02/02/20 23 02/01/2023 urina lysis , compl ete uro 0.2 Not Available [facility] ([facility]) [address] [place], [address], 02/01/2023 17:10:58 02/02/20 23 02/01/2023 urina lysis , compl ete nitrate negati ve negati ve Not Available [facility] ([facility]) [address] [place], [address], 02/01/2023 17:10:58 02/02/20 23 02/01/2023 urina lysis , compl ete blood trace- intact negati ve Not Available [facility] ([facility]) [address] [place], [address], 02/01/2023 17:10:58 02/02/20 23 02/01/2023 urina lysis , compl ete leukocytes negati ve negati ve Not Available [facility] ([facility]) [address] [place], [address], 02/01/2023 17:10:58 02/02/20 23 02/01/2023 urina lysis , compl ete WBC 2-3 0 Not Available [facility] ([facility]) [address] [place], [address], 02/01/2023 17:10:58 02/02/20 23 02/01/2023 urina lysis , compl ete RBC 1-2 0 Not Available [facility] ([facility]) [address] [place], [address], 02/01/2023 17:10:58 02/02/20 23 02/01/2023 urina lysis , compl ete epi cells 2-3 0 Not Available [facility] ([facility]) [address] [place], [address], 02/01/2023 17:10:58 02/02/20 23 02/01/2023 urina lysis , compl ete bacteria trace of mixed floura Not Available [facility] ([facility]) [address] [place], [address], 02/01/2023 17:10:58 02/02/20 23 02/01/2023 urina lysis , compl ete other Not Available [facility] ([facility]) [address] [place], [address], 02/01/2023 17:10:58 02/03/20 23 02/03/2023 CHLAM YDIA/ N. GONOR RHOEA E RNA, TMA, UROGE NITAL chlamydia trachomatis RNA, tma, urogenital NOT DETECT ED not detect ed normal Not Available [employer] [address], [address], 02/03/2023 22:07:03 02/03/20 23 02/03/2023 CHLAM YDIA/ N. GONOR RHOEA E RNA, TMA, UROGE NITAL neisseria gonorrhoeae RNA, tma, urogenital NOT DETECT ED not detect ed normal Not Available [employer] [address], [address], 02/03/2023 22:07:03 02/03/20 23 02/03/2023 CHLAM YDIA/ N. GONOR RHOEA E RNA, TMA, UROGE NITAL comment The jesse tical perfo rmanc e filemon cteri stics of this assay , when used to test SureP ath(T M) speci mens have been deter mined by [facility]. The modif icati ons have not been clear ed or appro junie by the FDA. This assay has been valid ated pursu ant to the CLIA regul ation s and is used for clini bryan purpo ses. For addit ional infor sandip barnhart e refer to https ://ed ucati on.qu estdi agnos tics. com/f aq/FA Q154 (This link is being provi ded for infor vikki nunez/ educa denia l purpo ses only. ) Not Available [facility] - [address] [address] [place], [address], 02/03/2023 22:07:03 02/03/20 23 02/03/2023 CHLAM YDIA/ N.CHINA ORRHO EAE AND T. VAGIN DONNA RNA, QL TMA chlamydia trachomatis RNA, tma, urogenital NOT DETECT ED not detect ed normal Not Available [facility] - [address], [address], 02/03/2023 22:10:47 02/03/20 23 02/03/2023 CHLAM YDIA/ N.CHINA ORRHO EAE AND T. VAGIN DONNA RNA, QL TMA neisseria gonorrhoeae RNA, tma, urogenital NOT DETECT ED not detect ed normal Not Available [facility] - [address], [address], 02/03/2023 22:10:47 02/03/20 23 02/03/2023 CHLAM YDIA/ N.CHINA ORRHO EAE AND T. VAGIN DONNA RNA, QL TMA comment The jesse tical perfo rmanc e filemon cteri stics of this assay , when used to test SureP ath(T M) speci mens have been deter mined by [facility]. The modif icati ons have not been clear ed or appro junie by the FDA. This assay has been valid ated pursu ant to the CLIA regul ation s and is used for clini bryan purpo ses. For addit ional sandip laura e refer to https ://ed ucati on.qu [employer]. com/f aq/FA Q154 (This link is being provi ded for infor vikki nunez/ educa denia l purpo ses only. ) Not Available [facility] [address] [address] [place], [address], 02/03/2023 22:10:47 02/03/20 23 02/03/2023 CHLAM YDIA/ N.CHINA ORRHO EAE AND T. VAGIN DONNA RNA, QL TMA trichomonas vaginalis RNA, ql tma NOT DETECT ED not detect ed normal For addit ional infor sandip barnhart e refer to http: //[facility] catnani nunez.que stdia gnost ics.c om/ faq/T geena anderson tma (This link is being provi ded for infor vikki reyes/ educa denia l purpo ses only. ) Not Available [employer] [address] [address] [place], [address], 02/03/2023 22:10:47 10/21/20 24 10/30/2024 IMAGE -GUID ED PAP W/AGE BASED SCR ARASH COLS comment This order for age-b ased cervi bryan cance r and STI scree martina follo ws ACOG guide lines (PB 168, 140, FAQ07 1). See indiv idual assay s for perfo rming site locat ion. Not Available [address] [address] [place], [address], 10/30/2024 12:40:50 10/21/20 24 10/30/2024 IMAGE -GUID ED PAP W/AGE BASED SCR ARASH COLS clinical information: normal Diana l exam Not Available [address] [address] [place], [address], 10/30/2024 12:40:50 10/21/20 24 10/30/2024 IMAGE -GUID ED PAP W/AGE BASED SCR ARASH COLS LMP: normal NONE GIVEN Not Available [facility] [address] [address] [place], [address], 10/30/2024 12:40:50 10/21/20 24 10/30/2024 IMAGE -GUID ED PAP W/AGE BASED SCR ARASH COLS prev. Pap: normal NONE GIVEN Not Available [employer] [address] [address] [place], [address], 10/30/2024 12:40:50 10/21/20 24 10/30/2024 IMAGE -GUID ED PAP W/AGE BASED SCR ARASH COLS prev. BX: normal NONE GIVEN Not Available [address] [place], [address], 10/30/2024 12:40:50 10/21/20 24 10/30/2024 IMAGE -GUID ED PAP W/AGE BASED SCR ARASH COLS source: normal Cervi x, Endoc ervix Not Available [address] [place], [address], 10/30/2024 12:40:50 10/21/20 24 10/30/2024 IMAGE -GUID ED PAP W/AGE BASED SCR ARASH COLS statement of adequacy: normal Satis facto ry for evalu ation . Endoc ervic al/tr ansfo rmati on zone compo nent prese nt. Not Available [address] [place], [address], 10/30/2024 12:40:50 10/21/20 24 10/30/2024 IMAGE -GUID ED PAP W/AGE BASED SCR ARASH COLS general categorizati on: abnormal Cytol ogy Resul ts: Epith elial Cell Abnor malit y Not Available [address], [address], 10/30/2024 12:40:50 10/21/20 24 10/30/2024 IMAGE -GUID ED PAP W/AGE BASED SCR ARASH COLS interpretati on/result: abnormal Atypi bryan Squam ous Cells of Undet ermin ed Signi fican ce (ASC- US) Not Available [address], [address], 10/30/2024 12:40:50 10/21/20 24 10/30/2024 IMAGE -GUID ED PAP W/AGE BASED SCR ARASH COLS comment: normal This Pap test has been evalu ated with compu ter szuy fred techn ology . Sugge st clini bryan corre latio n and follo w-up as clini brock appro priat e Not Available [address] [address] [place], [address], 10/30/2024 12:40:50 10/21/20 24 10/30/2024 IMAGE -GUID ED PAP W/AGE BASED SCR ARASH COLS cytotechnolo gist: normal TMK, CT( CP) CT scree martina locat ion: [address] [address] [place] [address] Not Available [facility] [address] [address] [place], [address], 10/30/2024 12:40:50 10/21/20 24 10/30/2024 IMAGE -GUID ED PAP W/AGE BASED SCR ARASH COLS pathologist: normal Diana bangura M.D., Board Certi fied in Anato shreyas Patho logy and Cytop athol ogy. Phone : [phone] (elec troni c signa ture) Not Available [facility] [address] [address] [place], [address], 10/30/2024 12:40:50 10/21/20 24 10/30/2024 IMAGE -GUID ED PAP W/AGE BASED SCR ARASH COLS comment EXPLA NATOR Y NOTE: The Pap is a scree martina test for cervi bryan cance r. It is not a diagn ostic test and is subje ct to false negat rosas and false posit rosas resul ts. It is most relia ble when a satis facto ry sampl e, regul zhang obtai cecilia, is submi tted with relev ant clini bryan findi ngs and histo ry, and when the Pap resul t is evalu ated along with histo raisa and curre nt clini bryan infor matio n. Not Available [facility] [address] [address] [place], [address], 10/30/2024 12:40:50 10/21/2010/30/2024 IMAGE -GUID ED PAP W/AGE BASED SCR ARASH COLS chlamydia trachomatis RNA, tma, urogenital NOT DETECT ED not detect ed normal Not Available [facility] [address], [address], 10/30/2024 12:40:50 10/21/20 24 10/30/2024 IMAGE -GUID ED PAP W/AGE BASED SCR ARASH COLS neisseria gonorrhoeae RNA, tma, urogenital NOT DETECT ED not detect ed normal Not Available [employer] [facility] [address] [address] [place], [address], 10/30/2024 12:40:50 10/21/20 24 10/30/2024 IMAGE -GUID ED PAP W/AGE BASED SCR ARASH COLS comment The jesse tical perfo rmanc e filemon cteri stics of this assay , when used to test SureP ath(T M) speci mens have been deter mined by [facility]. The modif icati ons have not been clear ed or appro junie by the FDA. This assay has been valid ated pursu ant to the CLIA regul ation s and is used for clini bryan purpo ses. For addit ional sandip laura refer to https ://ed ucati on.qu seth [employer]. Payvment/f aq/FA Q154 (This link is being provi ded for infohenrique nunez/ chang bangura purpo ses only. ) Not Available [employer] [facility] [address] [address] [address], [place], [address], 10/30/2024 12:40:50 10/21/20 24 10/30/2024 HPV MRNA E6/E7 HPV MRNA E6/E7 Not Detect ed not detect ed normal Metho dolog y: Trans cript ion-M ediat ed Ampli ficat ion This assay detec ts E6/E7 viral messe nger RNA (mRNA ) from 14 high- risk HPV types (16,1 8,31, 33,35 ,39,4 5,51, 52,56 ,58,5 9,66, 68). Cervi bryan sourc es are requi red for HPV testi ng. If a vagin al sourc e from a patie nt who has had a total hyste recto my with remov al of cervi x was submi tted, pleas e conta ct the testi ng labor atory for alter nativ e testi ng optio ns. For addit ional infor sandip barnhart e refer to http: //[facility] dena nunez.que stdia gnost ics.c om/fa q/FAQ 129v1 (This link if provi ded for infor vikki nunez/ educa denia l purpo ses only. ) Not Available [address], [address], 10/30/2024 12:40:52 Result Notes None recorded. Problems Name Problem SNOMED Code Status Onset Date Resolution Date Notes Provider Name and Address Organization Details Recorded Time Anxiety 60692729 Active 2022 PORFIRIO eason [facility], L.L.CJamal 5 15:38:32 Normal pregnanc y in multigra melinda [id number] 4106 Completed 202212/18/2022 NORMAL PREGNANC Y IN MULTIGRA MELINDA IN [facility] - Status is Inactive ; Recorded 12/18/19 23 9:39AM by Porfirio Celeste RN, Annotati on/Adden dum; Promoted ; acuity set as *; Not Available [employer] 3 03:18:13 Mixed anxiety and depressi ve disorder 222135955 Active 2024 PORFIRIO eason [facility], L.LJamalCJamal 5 15:53:45 Problem Notes None recorded. Procedures Surgical History Date Name Laterality Status Provider Name and Address Organization Details Recorded Time 01/24/20 23 jr iud insertion completed Glenn Kee MD [address] [place] [address], [address], [facility], L.LJamalCJamal 01/23/2023 16:41:57 04/27/20 22 Date of Last Pap Smear completed TALI PHOENIX [facility], [facility] 10/21/2024 13:34:19 Imaging Results None recorded. Procedure Notes None recorded. Medical Equipment None Reported. Allergies No known drug allergies Medications Name Sig Start Date Stop Date Status Note LastModified by Organization Details LastModified Time ibuprofen 800 mg tablet TAKE 1 TABLET BY MOUTH THREE TIMES DAILY 01/23 completed Not Available Not Available Not Available hydrocodo ne 5 mg-acetam inophen 325 mg tablet TAKE 1 TABLET BY MOUTH EVERY 4 HOURS NEEDED FOR MODERATE TO SEVERE PAIN 01/23 completed Not Available Not Available Not Available metronida zole 500 mg tablet TAKE 1 TABLET BY MOUTH TWICE DAILY FOR 7 DAYS 10/21 completed Not Available Not Available Not Available docusate sodium 100 mg capsule TAKE 1 CAPSULE BY MOUTH TWICE DAILY 01/23 completed Not Available Not Available Not Available amoxicill in 875 mg-potass ium clavulana te 125 mg tablet TAKE 1 TABLET BY MOUTH EVERY 12 HOURS 01/23 completed Not Available Not Available Not Available escitalop efrain 10 mg tablet TAKE 1 TABLET BY MOUTH ONCE DAILY active Not Available Not Available No t Available magnesium 1qd active Not Available Not Viviane ilable Not Available Vitamin C 10/21 completed 0; Recorded 12/18/19 23 9:40AM by Porfirio Celeste RN, Office Visit; Not Available Not Available Not Available calcium active Not Available Not Avail able Not Available One Daily active Not Available Not Viviane ilable Not Available Vitamin QD 10/21 completed 0; Recorded 12/18/19 23 9:40AM by Porfirio Celsete RN, Office Visit; Not Available Not Available Not Available Vitamin B12 10/21 completed 0; Recorded 12/18/19 23 9:40AM by Porfirio Celeste RN, Office Visit; Not Available Not Available Not Available Liletta 20.4 mcg/24 hr (up to 8 years) 52 mg intrauter ine device Take 1 device by intraute rine route. 10/21 completed Buy and Bill Not Available Not Available Not Available Vitals Date Recorded Body height Body mass index (BMI) Body weight Oxygen saturation Oxygen saturation in Arterial blood by Pulse oximetry Heart rate Respiratory rate Body temperature Systolic And Diastolic Provider Name and Address Organization Details Last Updated DateTime 3 152.4 cm 46.7 kg/m2 914001. 58 g 98 % 98 % 64 /min 18 /min 98.1 [degF] 118/64 mm[Hg] [facility] 3 15:31:53 Date Recorded Body height Body mass index (BMI) Body weight Oxygen saturation Oxygen saturation in Arterial blood by Pulse oximetry Heart rate Respiratory rate Body temperature Systolic And Diastolic Provider Name and Address Organization Details Last Updated DateTime 3 152.4 cm 46.7 kg/m2 784051. 98 g 98 % 98 % 84 /min 18 /min 97.8 [degF] 120/70 mm[Hg] [facility] 3 16:24:11 Date Recorded Body height Body mass index (BMI) Body weight Oxygen saturation Oxygen saturation in Arterial blood by Pulse oximetry Heart rate Respiratory rate Body temperature Systolic And Diastolic Provider Name and Address Organization Details Last Updated DateTime 5 152.4 cm 44.4 kg/m2 677727. 87 g 98 % 98 % 72 /min 18 /min 99 [degF] 124/78 mm[Hg] PORFIRIO ADY [facility] 5 15:52:57 Date Recorded Body height Body mass index (BMI) Body weight Oxygen saturation Oxygen saturation in Arterial blood by Pulse oximetry Heart rate Respiratory rate Body temperature Systolic And Diastolic Provider Name and Address Organization Details Last Updated DateTime 4 152.4 cm 48.3 kg/m2 025787. 12 g 98 % 98 % 84 /min 18 /min 98.8 [degF] 122/70 mm[Hg] [facility] 4 13:45:41 Social History Question Answer Notes LastModified by Organizat ion Details LastModified Time Tobacco Smoking Status [facility] 15:39:27 Are You Blind Or Do You Have Difficulty Seeing? No Information not available 03/24/2025 Are You Deaf Or Do You Have Serious Difficulty Hearing? No Information not available 03/24/2025 What Was The Date Of Your Most Recent Tobacco Screening? 03/24/2025 Information not available 03/24/2025 What Is Your Relationship Status? Domestic Partner Information not available 10/21/2024 Are You Sexually Active? Yes Information not available 10/21/2024 Do You Have Difficulty Walking Or Climbing Stairs? No Information not available 03/24/2025 Sex: Unknown Functional Status Question Answer Note LastModified by Organizat ion Details LastModified Time How many times per week do you consume alcohol? Less than 1 time per week Information not available 03/24/2025 Are you currently employed? Yes Information not available 03/24/2025 Do you have transportation difficulties? No Information not available 03/24/2025 Are you able to care for yourself? Yes Information n ot available 10/21/2024 Do you have difficulty dressing or bathing? No Information not available 03/24/2025 Do you or have you ever used e-cigarettes or vape? Current user of electronic cigarettes Information not available 03/24/2025 Do you use any illicit or recreational drugs? No Information not available 10/21/2024 Do you or have you ever used any other forms of tobacco or nicotine? Yes Information not available 03/24/2025 What is your level of alcohol consumption? Occasional Information not available 10/21/2024 Are you able to walk? YESWOREST Information not available 03/24/2025 Do you have difficulty doing errands alone? 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 No Information not available 03/24/2025 Mental Status Question Answer Note LastModified by Organization D etails LastModified Time Do you have difficulty concentrating, remembering or making decisions? No Information no t available 03/24/2025 Family History Relationship Description Onset Age of this Age Resolved Age Notes LastModified by Organization Details LastModified Time Father Hypertensive disorder [email or web address] Not available 13:36:28 Maternal Grandmother Diabetes mellitus [email or web address] Not available 13:36:41 Sister Seizure disorder [email or web address] Not available 13:36:59 Medical History No medical history recorded. Gynecological History Statement/Question Response Abnormal Pap N Date of Last Pap Smear 04/27/2022 Obstetrics History GPAL:G 1 P 1 0 0 1 Type Value Full Term 1 Living 1 Total 1 Immunizations Vaccine Type Date Status Note Provider Nam e and Address Organization Details Recorded Time Td (adult), 2 Lf tetanus toxoid, preservative free, adsorbed 6 completed Not Available [facility] 03/24/2025 15:26:31 Tdap 0 completed Not Available [facility] 03/24/2025 15:26:31 COVID-19, mRNA, LNP-S, PF, 100 mcg/0.5mL dose or 50 mcg/0.25mL dose 1 completed Not Available [facility] 03/24/2025 15:26:31 COVID-19, mRNA, LNP-S, PF, 100 mcg/0.5mL dose or 50 mcg/0.25mL dose 2 completed Not Available [facility] 03/24/2025 15:26:31 Tdap 2 completed Not Available [facility] 05/19/2023 02:32:22 Past Encounters Encounter ID Performer Location Encounter Start Date Encounter Closed Date Diagnosis/Indication Diagnosis SNOMED-CT Code Diagnosis ICD10 Code Diagnosis Note [id number] Glenn Kee MD [facility] ([facility]) [address] [place] [address] 01/23/2023 14:08:09 02/12/2023 16:26:27 Insertion of intrauterine contraceptive device [id number] Z30.430 [id number] Glenn Kee MD [facility] ([facility]) [address] [place] [address] [phone] 01/23/2023 14:08:52 01/23/2023 16:02:55 Insertion of intrauterine contraceptive device [id number] Z30.430 [id number] Glenn Kee MD [facility] ([facility]) [address] [place] [address] [phone] 02/01/2023 15:52:39 02/08/2023 10:18:23 Dysuria [id number] R30.0 Vaginal discharge [id number] 006 N89.8 IUD check [id number] Z30. 431 strings trimmed. [id number] Glenn Kee MD [facility] ([facility]) [address] [place] [address] [phone] 10/21/2024 13:21:09 10/21/2024 14:48:55 Gynecologic examination [id number] Z01.285 [id number] Glenn Kee MD [facility] ([facility]) [address] [place] [address] [phone] 03/24/2025 15:24:00 03/24/2025 16:12:21 Mixed anxiety and depressive disorder [id number] F41.8 Anxiety [id number] F41.9 Health Concerns Section Related Observation LastModified by Organization Detai ls LastModified Time None Recorded Concern Status LastModified by Organization Details LastModified Time None Recorded Advance Directives Directive None Recorded Payers Insurance Date Sequence Insurance Name Policy Number Policy Dela Cruz Covered Member ID Dela Cruz Member ID Guarantor Name 10/21/2024 1 [facility] (MEDICAID HMO) Nohemy Eduardo [id number] Nohemy Eduardo 03/24/2025 1 [facility] (MEDICAID HMO) Nohemy Eduardo [id number] Nohemy Eduardo 03/25/2025 [facility] (MEDICAID HMO) Nohemy Eduardo [id number] Nohemy Eduardo 10/21/2024 1 [employer] [place] (MEDICAID REPLACEMENT - HMO) [id number] Nohemy Eduardo [id number] Nohemy Eduardo Notes Date Note Type Note Provider Name and Address Organization Details Recorded Time 01/23/2023 text/html Pt is her for IU D placement Glenn Kee MD [address] [place] [address], [phone], [facility], [place] 01/23/2023 16:42:42 02/01/2023 text/html Lower Urinary Tract Symptoms (LUTS)Reported bypatient.Quality: pressure; burning and vaginal discharge Severity:moderate Onset/Timing:const ant Context:abnormal voiding frequency; history of STDs Associated Symptoms:no flank pain; no fever; no constipation; no diarrhea; no nausea; no vomiting;abdominal pain;low back pain;hesitancy;urg ency;frequency;vag inal discharge;vaginal itching or burning;suprapubic pain; sexually active Glenn Kee MD [address] [place] [address], [phone], [facility], [place]. 02/01/2023 17:11:32 10/21/2024 text/html Annual GYNReport ed bypatient.History: no gynecologic complaints Menstrual cycle:age at menarche (7) Urinary symptoms:no hematuria; no incontinence Vulva:no genital lesion Vagina:normal vaginal discharge; clear Breast:no breast pain; no breast lump; no nipple discharge Sexual complaints:no sexual complaints Menopausal Symptoms:normal vaginal lubrication Psychological symptoms:depressio n;anxiety Preventive measures:encourage self breast examination; encourage regular exercise; encourage no tobacco use; encourage regular mammograms starting age 39 Pt states her IUD fell out on 09/28/24, pt would like to discuss other options. Glenn Kee MD [address] [place] [address], [phone], [facility], [place]. 10/21/2024 14:26:45 03/24/2025 text/html Anxiety/Depressi on Reported bypatient.Severity :mood worse;increased anxiety;interferen ce with activities of daily living;interferenc e with sleep Associated Symptoms:denies homicidal ideations; no visual/auditory hallucinations; no shortness of breath; appetite good; maintaining functionality; no leaden paralysis;high irritability;anxie ty;depression;lone liness;restlessnes s/agitation;feelin g guilty;inability to make decisions;low self-esteem;pessim ism;social withdrawal;decreas ed effectiveness/prod uctivity;palpitati ons;headaches;decr eased energy;excessive worrying;panic symptoms;unable to concentrate Glenn Kee MD [address] [place] [address], [phone], [facility] 03/24/2025 16:09:26 OBGyn Episode Ob Episode Information Episode Created Date Number of Fetuses Patient Bloodtype Patient rh Status Prepregnancy Weight lbs Domestic Partner Domestic Partner Phone Father Name Financial Systems Manager Status 10/21/20 24 1 CLOSED Fetus Data First Name Last Name Admitted to NICU Weight (g) Sex Living Outcome Pediatric Complications Fetus ID Race Codes Race Delivery Type 4252.42 5 M Full Term [id number] Pancho Calculation Initial Pancho Date Initial Exam Date Initial Exam Provider Initial Ultrasound Date Last Menstrual Period Date Ultra Sound Weeks Gestation 0 Eighteen To Twenty Week Pancho Update Ultra Sound Date Fundal Height At Umbil Quickening Date Ultra Sound Latest Weeks Gestation Final Pancho Confirmed By Final Pancho Confirmed Date Final Pancho Date Ultra Sound Latest Days Gestation 0 0 Menstrual History Last Menstrual Date Menses Monthly On Bcp Conception Prior Menses Frequency Hcg Plus Date Menarche Onset Age Delivery Information Delivery Date Delivery Type Labor Anesthesia Weeks Gestation Incision Type Labor Labor Length Hrs Delivered By Post Complications Tubal Sterilization Discharge Date Comments 3 41 Discharge Information Feeding Method Contraceptive Method Maternal HG B and HCT Levels
[2025-05-06 08:50] VITALS: BP 141/79; PULSE 71; RESP 16; TEMP 36.8; O2SAT 99; BMI 37.8
[2025-05-06 08:55] VITALS: BP 129/71; PULSE 72; RESP 16; O2SAT 99
--- NOTE | 2025-05-06 08:59 | ED_ITS ---
HPI - Back Pain/Injury General: Chief Complaint: Back Pain/Injury Stated Complaint: back pain Time Seen by Provider: 05/06/25 08:44 Source: patient Mode of arrival: ambulatory Limitations: no limitations History of Present Illness: 24-year-old female states she been havin g thoracic back pain since Sunday. States its paraspinals worse with movement and palpation she denies any specific injuries denies any fever denies any weakness rates her pain a 5 out of 10 currently Associated symptoms: Deny abdominal pain, chills, fever(s), nausea or vomiting Related Data Home Medications ?Medication ?Instructions ?Recorded ?Confirmed pfxmrnuj-qok-Hv-FA 1 mg tab PO 11/04/22 tablet Previous Rx's ?Medication ?Instructions ?Recorded docusate sodium 100 mg capsule 100 mg PO BID #20 caps 11/06/22 hydrocodone 5 mg-acetaminophen 325 1 tab PO Q4H PRN Mo derate To 11/06/22 mg tablet Severe Pain #28 tabs ibuprofen 800 mg tablet 800 mg PO TID #45 tabs 11/06 methocarbamol 750 mg tablet 750 mg PO Q6H PRN spasms # 20 tabs 05/06/25 naproxen 500 mg tablet (Naprosyn) 500 mg PO BID PRN pa in #20 tabs 05/06/25 Allergies Allergy/AdvReac Type Severity Reaction Status Date / Time No Known Allergies Allergy Verified 11/04/22 14:52 Review of Systems Const: Denies: fever(s), chills, body aches or change in appetite ENMT: Denies: throat pain or dental pain Card: Denies: chest pain Resp: Denies: dyspnea GI: Denies: abdominal pain, nausea, vomiting or diarrhea Musc: Reports: back pain; Denies: neck pain Skin/Breast: Denies: rash Neuro: Denies: headache(s) PFSH ED PFSH: Medical History No pertinent family history Surgical History (Updated 12/17/22 @ 02:41 by REED Lennon) History of Female Reproductive History: Date of last menstrual period: 04/06/25 Physical Exam Const: COMMON NORMALS: no acute distress, patient oriented x3 and healthy appearing HENMT: COMMON NORMALS: normocephalic and atraumatic HEAD & SCALP: normocephalic and atraumatic Eye: COMMON NORMALS: conjunctivae normal CONJUNCTIVA: Yes conjunctivae normal Neck/C-Spine: COMMON NORMALS: full ROM and supple Chest: COMMONS NORMALS: normal inspection of the chest Resp: COMMON NORMALS: normal respiratory effort Cardio: COMMON NORMALS: regular rate, regular rhythm and No murmurs present (Cardio) RATE: regular rate RHYTHM: regular rhythm Back/Pelvis: OTHER: Paraspinal tenderness along T-spine no midline tenderness Extremity: COMMON NORMALS: normal to inspection and full ROM Neuro: COMMON NORMALS: patient oriented x3, moves all extremities and no focal motor deficits Psych: COMMON NORMALS: mental status grossly normal, Normal thought process present and cooperative THOUGHT PROCESS: Normal thought process present Skin: COMMON NORMALS: no rashes or lesions noted and no wounds GENERAL SKIN EXAM: no rashes or lesions noted Course Vital Signs: Vital signs: Vital Signs Temperature 98.2 F 05/06/25 08:50 Pulse Rate 72 05/06/25 08:55 Respiratory Rate 16 05/06/25 08:55 Blood Pressure 129/71 05/06/25 08:55 Pulse Oximetry 99 05/06/25 08:55 Oxygen Delivery Me thod Room Air 05/06/25 08:50 MDM - Back Pain/Injury Medical Decision Making Patient presents for thoracic back pains likely muscular in nature x-ray shows no abnormalities she has no signs of epidural abscess or cord compression we will prescribe her Naprosyn Robaxin she is to follow-up with PCP return if worsening. Medical Records I reviewed the patient's medical records. XR interpretation done by ED provider, pending radiology final review ED provider radiology interpretation(s): X-ray thoracic spine no acute abnormality Discharge Plan Discharge Patient Disposition: Home Clinical Impression: Thoracic back pain Condition: Stable Prescriptions: New methocarbamol 750 mg tablet 750 mg PO Q6H PRN (Reason: spasms) Qty: 20 0RF naproxen [Naprosyn] 500 mg tablet 500 mg PO BID PRN (Reason: pain) Qty: 20 0RF No Action fdxrkrtk-[id number]-Yz-FA 1 mg Tablet PO ibuprofen 800 mg Tablet 800 mg PO TID Qty: 45 0RF hydrocodone-acetaminophen 5-325 mg Tablet 1 tab PO Q4H PRN (Reason: Moderate To Severe Pain) Qty: 28 0RF docusate sodium 100 mg Capsule 100 mg PO BID Qty: 20 0RF Discharge Orders: Discharge ED (Routine); Ordered 05/06/25 Ordered By: Zeferino Solis Discharge Diet: Advance as tolerated Discharge Activity: Resume usual activity Patient Instructions: Back Pain (ED) Print Language: Emirati Coding Level of Care Code ED Bariatric Physician for Elizabet Lopez
--- NOTE | 2025-05-06 08:59 | XRR_ITS ---
PROCEDURE INFORMATION: Exam: XR Thoracic Spine Exam date and time: 05/06/2025 9:08 AM Age: 24 years old Clinical indication: Pain in thoracic spine; Additional info: Back pain TECHNIQUE: Imaging protocol: Radiologic exam of the thoracic spine. Views: 3 views. COMPARISON: No relevant prior studies available. FINDINGS: Bones/joints: There is normal vertebral body alignment. There are normal vertebral body heights. Disc spaces are symmetric and maintained. No fracture. The pedicles are intact. Soft tissues: Unremarkable. XR/XR thoracic spine 3V* [id number] IMPRESSION: No fracture.
[2025-05-06 09:56] VITALS: BP 104/66; PULSE 63; RESP 16; O2SAT 99
== END 2025-05-06 09:56 | disposition home or self-care (01) ==
PROVIDERS: Emergency Provider Emergency Medicine
DX: M54.6 Pain in thoracic spine (principal)
CPT/HCPCS: 72072; 99283; J9999